=== PATIENT | female | born 2000 | race Caucasian/White ===

== ENCOUNTER 2021-06-11 19:29 | Emergency (ER) | payer MEDICAID ==
[~2021-06-11] VITALS: Ht 167.6 cm; Wt 64.9 kg
[2021-06-11] MEDS ORDERED: diphenhydrAMINE HCL 50 MG/ML VIAL IV ONE (20:30)
[2021-06-11] MEDS ORDERED: SUMATRIPTAN SUCCINATE 6 MG/0.5 ML VIAL SQ ONE ×2 (20:30→20:33)
[2021-06-11] MEDS ORDERED: diphenhydrAMINE HCL 50 MG/ML VIAL ONE (20:32)
[2021-06-11 20:37] LABS: BASOPHILS % (AUTO) 0.6 % (0.0-2.0); EOSINOPHILS % (AUTO) 5.8 % (0.0-6.0); HEMATOCRIT 34 % (33-45); HEMOGLOBIN 11.6 g/dL (11.5-14.8); LYMPHOCYTES % (AUTO) 29.2 % (20.0-44.0); MEAN CORPUSCULAR HGB CONC 34 g/dl (31.0-36.0); MEAN CORPUSCULAR VOLUME 87 fL (82-100); MONOCYTES # (AUTO) 0.4 K/uL (0.1-1.30); MONOCYTES % (AUTO) 6.5 % (2.0-12.0); NEUTROPHILS # (AUTO) 3.9 K/uL (1.8-8.9); NEUTROPHILS % (AUTO) 57.9 % (43.0-81.0); PLATELET COUNT (AUTO) 293 K/uL (150-450); RED BLOOD CELL COUNT(AUTO) 3.87 MIL/uL (4.0-5.2); WHITE BLOOD COUNT (AUTO) 6.7 K/uL (4.3-11.0)
[2021-06-11 20:45] LABS: CALCIUM, SERUM 8.8 mg/dL (8.5-10.1); CREATININE 0.8 mg/dL (0.6-1.3); POTASSIUM 3.7 mmol/L (3.5-5.1)
--- NOTE | 2021-06-11 20:46 | NUR ---
BIBFATHER FROM HOME TO ER BED 15. AAOX4. NOT IN RESP DISTRESS. AMBULATORY. CAME IN FOR HEADACHE X 2 WEEKS. PT REPORT TAKING MOTRIN BUT NOT EFFECTIVE FOR THE PAIN. MD WAS AT THE BEDSIDE FOR EVAL. ORDERS RECEIVED, NOTED AND CARRIED OUT.
[2021-06-11] MEDS ORDERED: SUMA50TA PO (21:15)
[2021-06-11] MEDS ORDERED: AMOX-430 PO (21:30)
[2021-06-11 21:43] VITALS: BP 127/70
--- NOTE | 2021-06-11 21:43 | NUR ---
Patient discharged to home in stable condition. Written and verbal after care instructions given. Patient verbalizes understanding of instruction.IV removed. Catheter intact and site benign. Pressure and 4x4 applied to site. No bleeding noted. Pt ambulatory with a steady gait
== END 2021-06-11 21:46 | disposition home or self-care (01) ==
LOC: ER 19:36
DX: R51.9 Headache, unspecified (principal); J32.9 Chronic sinusitis, unspecified
CPT/HCPCS: 36415; 70450; 80048; 85025; 85652; 96372; 96374; 99285; J1200; J3030

== ENCOUNTER → 2021-07-01 | Emergency (ER) | payer MEDICAID ==
[~2021-07-01] VITALS: Ht 167.6 cm; Wt 64.9 kg
[~2021-07-01] MED LIST: AMOX-430 PO; KETOROLAC TROMETHAMINE INJ 30 MG/ML VIAL IV ONE; KETOROLAC TROMETHAMINE INJ 30 MG/ML VIAL ONE; NAPR-1009 PO; PROCHLORPERAZINE EDISYLATE 10 MG/2 ML VIAL IVP ONE; PROCHLORPERAZINE EDISYLATE 10 MG/2 ML VIAL ONE; SUMA50TA PO; diphenhydrAMINE HCL 50 MG/ML VIAL IV ONE; diphenhydrAMINE HCL 50 MG/ML VIAL ONE
--- NOTE | 2021-07-01 16:45 | NUR ---
BBIB MOM C/O HEADACHE FOR 3 DAYS SEEN HERE LAST TIME FOR SAME CC. NO SOB, NO S/O ANY ACUTE DISTRESS NOTED. PATIENT KEPT COMFORTABLE. SAFETY PRECAUTIONS IN PLACE. WILL CONTINUE TO MONITOR
[2021-07-01 18:34] VITALS: BP 122/78
--- NOTE | 2021-07-01 18:35 | NUR ---
Patient discharged to home in stable condition. Written and verbal after care instructions given. Patient verbalizes understanding of instruction.
== END | disposition home or self-care (01) ==
LOC: ER 16:08
DX: G43.909 Migraine, unspecified, not intractable, without status migrainosus (principal); Z79.899 Other long term (current) drug therapy
CPT/HCPCS: 96374; 96375; 99284; J0780; J1200; J1885

== ENCOUNTER 2021-11-21 14:44 | Emergency (ER) | payer MEDICAID ==
[~2021-11-21] VITALS: Ht 167.6 cm; Wt 63.5 kg
[~2021-11-21 14:44] MED LIST changes: -KETOROLAC TROMETHAMINE INJ 30 MG/ML VIAL IV ONE; -KETOROLAC TROMETHAMINE INJ 30 MG/ML VIAL ONE; -PROCHLORPERAZINE EDISYLATE 10 MG/2 ML VIAL IVP ONE; -PROCHLORPERAZINE EDISYLATE 10 MG/2 ML VIAL ONE; -diphenhydrAMINE HCL 50 MG/ML VIAL IV ONE; -diphenhydrAMINE HCL 50 MG/ML VIAL ONE
[2021-11-21] MEDS ORDERED: DEXAMETHASONE SOD PHOSPHATE 10 MG/ML VIAL IV ONE (15:30)
[2021-11-21] MEDS ORDERED: diphenhydrAMINE HCL 50 MG/ML VIAL IV ONE (15:30)
[2021-11-21] MEDS ORDERED: KETOROLAC TROMETHAMINE INJ 30 MG/ML VIAL IV ONE (15:30)
[2021-11-21] MEDS ORDERED: IV NS 0.9% 1,000 ML BAG IV ONE (15:30)
[2021-11-21] MEDS ORDERED: PROCHLORPERAZINE EDISYLATE 10 MG/2 ML VIAL IVP ONE (15:30)
--- NOTE | 2021-11-21 15:33 | NUR ---
BIBSELF FROM HOME C/O HEADACHE 07/04, NAUSEA AND DIZZINESS X6MO, HX OF MIGRAINE. WILL CONTINUE TO MONITOR THE PATIENT.
[2021-11-21] MEDS ORDERED: DEXAMETHASONE SOD PHOSPHATE 10 MG/ML VIAL ONE (15:37)
[2021-11-21] MEDS ORDERED: PROCHLORPERAZINE EDISYLATE 10 MG/2 ML VIAL ONE (15:37)
[2021-11-21] MEDS ORDERED: diphenhydrAMINE HCL 50 MG/ML VIAL ONE (15:37)
[2021-11-21] MEDS ORDERED: KETOROLAC TROMETHAMINE INJ 30 MG/ML VIAL ONE (15:42)
[2021-11-21] MEDS ORDERED: SUMA1TAB6 PO (16:20)
--- NOTE | 2021-11-21 17:01 | NUR ---
IV removed. Catheter intact and site benign. Pressure and 4x4 applied to site. No bleeding noted.Patient discharged to home in stable condition. Written and verbal after care instructions given. Patient verbalizes understanding of instruction.
[2021-11-21 18:00] VITALS: BP 136/60
== END 2021-11-21 18:00 | disposition home or self-care (01) ==
LOC: ER 14:48
DX: G43.909 Migraine, unspecified, not intractable, without status migrainosus (principal); Z79.1 Long term (current) use of non-steroidal anti-inflammatories (NSAID)
CPT/HCPCS: 96361; 96374; 96375; 99284; J0780; J1100; J1200; J1885; J7030